=== PATIENT | female | born 1985 | race Caucasian/White ===

== ENCOUNTER 2016-03-30 16:08 | Emergency (ER) | payer SELFPAY ==
--- NOTE | 2016-03-30 17:27 | EDDOCDS ---
Nurse's Notes [facility] Name: Rachelle Khalil Age: 30 yrs Sex: Female : 1985 Arrival Date: 03/30/2016 Time: 16:08 Bed Triage 2 Private MD: NO PRIMARY PHYSICIAN, . Diagnosis: Benign lipomatous neoplasm, unspecified-sternum Presentation: 03/30 16:12 Presenting complaint: Patient states: "I have a lump on my breastbone that causes ead shooting pain in my chest and my abdomen." Pt reports lump has been present for 1 1/2 years. Adult Sepsis Screening: The patient does not have new or worsening altered mentation. Patient's respiratory rate is less than 22. Systolic blood pressure is greater than 100. Patient has a qSOFA score of 0- Negative Sepsis Screen. Suicide/Homicide risk assessment- the patient denies having any suicidal and/or homicidal ideations and does not present with any other emotional, behavioral or mental health complaints. Status: Patient is not a service developer or dependent. Transition of care: patient was not received from another setting of care. 16:12 Acuity: [place] Level 4 ead 16:12 Method Of Arrival: Walkin/Carried/Asstd ead Triage Assessment: 16:14 General: Appears in no apparent distress, comfortable, Behavior is appropriate for age, ead cooperative. Pain: Location: diaphragm, xyphoid area, mid-sternal area, right breast and left breast Pain currently is 7 out of 10 on a pain scale. HIV screening NA for this visit Offered previously. Respiratory: Airway is patent Respiratory effort is even, unlabored, Denies shortness of breath. Derm: Skin is pink, warm & dry. pt reports lump on breast bone. 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 none - PMHx: none; - PSHx: none; - Social history: Smoking status: Patient states former smoker of tobacco. No barriers to communication noted, The patient speaks fluent Georgian, Speaks appropriately for age. - Family history: Not pertinent. - : The pt / caregiver states he / she is not on anticoagulants. Home medication list is obtained from the patient. - Exposure Risk Screening:: None identified. Screenin:26 Screening information is obtained from the patient. Fall risk: No risks identified. mlb1 Assistance ADL's: requires no assistance with activities of daily living. Abuse/DV Screen: The patient / caregiver reports he/she is: not in a situation that causes fear, pain or injury. Nutritional screening: No deficits noted. Advance Directives: Currently, there is no health care proxy. home support is adequate. Assessment: 17:25 General: Appears in no apparent distress, comfortable, Behavior is appropriate for age, mlb1 cooperative. Pain: Location: mid-sternal area lump Pain currently is 7 out of 10 on a pain scale. Respiratory: No deficits noted. Vital Signs: 16:10 BP 136 / 75; Pulse 76; Resp 18 S; Temp 98.0(O); Pulse Ox 98% on R/A; Weight 85.73 kg gr2 (R); Height 5 ft. 2 in. (157.48 cm) (R); Pain 6/10; 16:10 Body Mass Index 34.57 (85.73 kg, 157.48 cm) gr2 Vitals: 16:10 Log In Time: March 30, 2016 at 16:10. gr2 ED Course: 16:09 Patient visited by Ten Lindsey. gr2 16:09 NO PRIMARY PHYSICIAN, . is Private Physician. gr2 16:09 Patient moved to Waiting gr2 16:11 Patient visited by Ten Lindsey. gr2 16:11 Patient moved to Pre RCE gr2 16:13 Triage Initiated ead 16:38 Patient moved to Triage 2 ead 16:47 Patient visited by Bailee Sosa RN. ck1 16:48 Spike Nieto PA is PHCP. mo1 16:48 Nilda Banks MD is Attending Physician. mo1 16:52 Patient visited by Spike Nieto PA. mo1 17:13 [facility] is Referral Physician. mo1 17:25 Patient visited by Spike Broderick RN. mlb1 17:26 No IV's were initiated during this patient's visit. No procedures done that require mlb1 assistance. 17:27 The patient / caregiver is instructed regarding the plan of care and ED course. mlb1 Order Results: There are currently no results for this order. Outcome: 17:13 Discharge ordered by Provider. mo1 17:26 Discharge Assessment: Patient awake, alert and oriented x 3. No cognitive and/or mlb1 functional deficits noted. Patient verbalized understanding of disposition instructions. patient administered narcotics - no. The following High Risk Discharge criteria are identified: None. Discharged to home ambulatory. Condition: good. Discharge instructions given to patient, Instructed on discharge instructions, follow up and referral plans. Demonstrated understanding of instructions, Pt was receptive of discharge instructions/ teaching. No special radiology studies were completed. Property sent home with patient. 17:27 Patient left the ED. mlb1 Signatures: Spike Broderick RN RN mlb1 Bailee SosaRN RN ck1 Ten Lindsey gr2 Spike Nieto PA PA mo1 Lluvia Alexis,RN RN candi MTDD
--- NOTE | 2016-03-30 17:27 | EDDOCDS ---
Physician Documentation [facility] Name: Rachelle Khalil Age: 30 yrs Sex: Female : 1985 Arrival Date: 03/30/2016 Time: 16:08 Bed Triage 2 Private MD: NO PRIMARY PHYSICIAN, . Disposition: 03/30/16 17:13 Discharged to Home/Self Care. Impression: Benign lipomatous neoplasm, unspecified - sternum. - Condition is Stable. - Discharge Instructions: Chest Wall Pain, Lipoma. - Medication Reconciliation, Local Pharmacy Hours form. - Follow up: [facility]; When: Call to arrange an appointment; Reason: Recheck today's complaints, Continuance of care. - Problem is an ongoing problem. - Symptoms are unchanged. Historical: - Allergies: no known allergies; - Home Meds: 1. none - PMHx: none; - PSHx: none; - Social history: Smoking status: Patient states former smoker of tobacco. No barriers to communication noted, The patient speaks fluent French, Speaks appropriately for age. - Family history: Not pertinent. - : The pt / caregiver states he / she is not on anticoagulants. Home medication list is obtained from the patient. - Exposure Risk Screening:: None identified. 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 2 in. (157.48 cm) (R); Pain 6/10; 16:10 Body Mass Index 34.57 (85.73 kg, 157.48 cm) gr2 Signatures: Spike Broderick RN RN mlb1 Spike Nieto PA PA Lluvia Wolf,RN RN candi MTDD
--- NOTE | 2016-04-01 18:27 | EDDOCDS ---
Nurse's Notes [facility] Name: Rachelle Khalil Age: 30 yrs Sex: Female : 1985 Arrival Date: 03/30/2016 Time: 16:08 Bed Triage 2 Private MD: NO PRIMARY PHYSICIAN, . Diagnosis: Benign lipomatous neoplasm, unspecified-sternum Presentation: 03/30 16:12 Presenting complaint: Patient states: "I have a lump on my breastbone that causes ead shooting pain in my chest and my abdomen." Pt reports lump has been present for 1 1/2 years. Adult Sepsis Screening: The patient does not have new or worsening altered mentation. Patient's respiratory rate is less than 22. Systolic blood pressure is greater than 100. Patient has a qSOFA score of 0- Negative Sepsis Screen. Suicide/Homicide risk assessment- the patient denies having any suicidal and/or homicidal ideations and does not present with any other emotional, behavioral or mental health complaints. Status: Patient is not a auto self service station attendant or dependent. Transition of care: patient was not received from another setting of care. 16:12 Acuity: [place] Level 4 ead 16:12 Method Of Arrival: Walkin/Carried/Asstd ead Triage Assessment: 16:14 General: Appears in no apparent distress, comfortable, Behavior is appropriate for age, ead cooperative. Pain: Location: diaphragm, xyphoid area, mid-sternal area, right breast and left breast Pain currently is 7 out of 10 on a pain scale. HIV screening NA for this visit Offered previously. Respiratory: Airway is patent Respiratory effort is even, unlabored, Denies shortness of breath. Derm: Skin is pink, warm & dry. pt reports lump on breast bone. 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 none - PMHx: none; - PSHx: none; - Social history: Smoking status: Patient states former smoker of tobacco. No barriers to communication noted, The patient speaks fluent Portuguese, Speaks appropriately for age. - Family history: Not pertinent. - : The pt / caregiver states he / she is not on anticoagulants. Home medication list is obtained from the patient. - Exposure Risk Screening:: None identified. Screenin:26 Screening information is obtained from the patient. Fall risk: No risks identified. mlb1 Assistance ADL's: requires no assistance with activities of daily living. Abuse/DV Screen: The patient / caregiver reports he/she is: not in a situation that causes fear, pain or injury. Nutritional screening: No deficits noted. Advance Directives: Currently, there is no health care proxy. home support is adequate. Assessment: 17:25 General: Appears in no apparent distress, comfortable, Behavior is appropriate for age, mlb1 cooperative. Pain: Location: mid-sternal area lump Pain currently is 7 out of 10 on a pain scale. Respiratory: No deficits noted. Vital Signs: 16:10 BP 136 / 75; Pulse 76; Resp 18 S; Temp 98.0(O); Pulse Ox 98% on R/A; Weight 85.73 kg gr2 (R); Height 5 ft. 2 in. (157.48 cm) (R); Pain 6/10; 16:10 Body Mass Index 34.57 (85.73 kg, 157.48 cm) gr2 Vitals: 16:10 Log In Time: March 30, 2016 at 16:10. gr2 ED Course: 16:09 Patient visited by Ten Lindsey. gr2 16:09 NO PRIMARY PHYSICIAN, . is Private Physician. gr2 16:09 Patient moved to Waiting gr2 16:11 Patient visited by Ten Lindsey. gr2 16:11 Patient moved to Pre RCE gr2 16:13 Triage Initiated ead 16:38 Patient moved to Triage 2 ead 16:47 Patient visited by Bailee Sosa RN. ck1 16:48 Spike Nieto PA is PHCP. mo1 16:48 Nilda Banks MD is Attending Physician. mo1 16:52 Patient visited by Spike Nieto PA. mo1 17:13 [facility] is Referral Physician. mo1 17:25 Patient visited by Spike Broderick RN. mlb1 17:26 No IV's were initiated during this patient's visit. No procedures done that require mlb1 assistance. 17:27 The patient / caregiver is instructed regarding the plan of care and ED course. mlb1 17:43 [facility] [place] Payment Agreement was scanned into [employer] and attached to record. lg 03/31 09:41 T-Sheet-- Draft Copy was scanned into [employer] and attached to record. gb Order Results: There are currently no results for this order. Outcome: 03/30 17:13 Discharge ordered by Provider. mo1 17:26 Discharge Assessment: Patient awake, alert and oriented x 3. No cognitive and/or mlb1 functional deficits noted. Patient verbalized understanding of disposition instructions. patient administered narcotics - no. The following High Risk Discharge criteria are identified: None. Discharged to home ambulatory. Condition: good. Discharge instructions given to patient, Instructed on discharge instructions, follow up and referral plans. Demonstrated understanding of instructions, Pt was receptive of discharge instructions/ teaching. No special radiology studies were completed. Property sent home with patient. 17:27 Patient left the ED. mlb1 Signatures: Gwen Davies, Reg Reg gb Yulia Bender, Reg Reg lg Spike Broderick RN RN mlb1 Bailee SosaRN RN ck1 Ten Lindsey gr2 Spike Nieto PA PA mo1 Lluvia Alexis,RN RN candi Chart Complete YONY
--- NOTE | 2016-04-01 18:27 | EDDOCDS ---
Physician Documentation [facility] Name: Rachelle Khalil Age: 30 yrs Sex: Female : 1985 Arrival Date: 03/30/2016 Time: 16:08 Bed Triage 2 Private MD: NO PRIMARY PHYSICIAN, . Disposition: 03/30/16 17:13 Discharged to Home/Self Care. Impression: Benign lipomatous neoplasm, unspecified - sternum. - Condition is Stable. - Discharge Instructions: Chest Wall Pain, Lipoma. - Medication Reconciliation, Local Pharmacy Hours form. - Follow up: [facility]; When: Call to arrange an appointment; Reason: Recheck today's complaints, Continuance of care. - Problem is an ongoing problem. - Symptoms are unchanged. Historical: - Allergies: no known allergies; - Home Meds: 1. none - PMHx: none; - PSHx: none; - Social history: Smoking status: Patient states former smoker of tobacco. No barriers to communication noted, The patient speaks fluent Maltese, Speaks appropriately for age. - Family history: Not pertinent. - : The pt / caregiver states he / she is not on anticoagulants. Home medication list is obtained from the patient. - Exposure Risk Screening:: None identified. 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 2 in. (157.48 cm) (R); Pain 6/10; 16:10 Body Mass Index 34.57 (85.73 kg, 157.48 cm) gr2 MDM: 17:43 [facility] Payment Agreement was scanned into [employer] and attached to record. 17:43 Financial registration complete. 03/31 09:41 T-Sheet-- Draft Copy was scanned into [employer] and attached to record. Signatures: Gwen Davies, Reg Reg gb Yulia Bender, Reg Reg lg Spike Broderick, RN RN mlb1 Spike Nieto PA PA mo1 Lluvia Alexis,RN RN ead The chart was reviewed and I authenticate all verbal orders and agree with the evaluation and treatment provided.Attachments: 03/30 17:43 [facility] [place] Agreement lg 03/31 09:41 T-Sheet-- Draft Copy gb Chart Complete MTDD
--- NOTE | 2016-04-01 18:27 | EDDOCDS ---
Physician Documentation [facility] Name: Rachelle Khalil Age: 30 yrs Sex: Female : 1985 Arrival Date: 03/30/2016 Time: 16:08 Bed Triage 2 Private MD: NO PRIMARY PHYSICIAN, . Disposition: 03/30/16 17:13 Discharged to Home/Self Care. Impression: Benign lipomatous neoplasm, unspecified - sternum. - Condition is Stable. - Discharge Instructions: Chest Wall Pain, Lipoma. - Medication Reconciliation, Local Pharmacy Hours form. - Follow up: [facility]; When: Call to arrange an appointment; Reason: Recheck today's complaints, Continuance of care. - Problem is an ongoing problem. - Symptoms are unchanged. Historical: - Allergies: no known allergies; - Home Meds: 1. none - PMHx: none; - PSHx: none; - Social history: Smoking status: Patient states former smoker of tobacco. No barriers to communication noted, The patient speaks fluent Palauan, Speaks appropriately for age. - Family history: Not pertinent. - : The pt / caregiver states he / she is not on anticoagulants. Home medication list is obtained from the patient. - Exposure Risk Screening:: None identified. 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 2 in. (157.48 cm) (R); Pain 6/10; 16:10 Body Mass Index 34.57 (85.73 kg, 157.48 cm) gr2 MDM: 17:43 [facility] Payment Agreement was scanned into [employer] and attached to record. 17:43 Financial registration complete. 03/31 09:41 T-Sheet-- Draft Copy was scanned into [employer] and attached to record. Signatures: Gwen Davies, Reg Reg gb Yulia Bender, Reg Reg lg Spike Broderick, RN RN mlb1 Spike Nieto PA PA mo1 Lluvia Alexis,RN RN ead The chart was reviewed and I authenticate all verbal orders and agree with the evaluation and treatment provided.Attachments: 03/30 17:43 [facility] [place] Payment Agreement lg 03/31 09:41 T-Sheet-- Draft Copy gb Chart Complete MTDD
== END 2016-03-30 17:27 | disposition home or self-care (01) ==
LOC: M ED 16:08
DX: D17.1 Benign lipomatous neoplasm of skin and subcutaneous tissue of trunk (principal); Z87.891 Personal history of nicotine dependence

== ENCOUNTER 2016-06-15 17:44 | Emergency (ER) | payer SELFPAY ==
[~2016-06-15] VITALS: Ht 157.5 cm; Wt 80.3 kg
[2016-06-15] MEDS ORDERED: NS 1,000 ML IV ONE (18:30)
[2016-06-15] MEDS ORDERED: ONDANSETRON 4MG/2ML VIAL (J2405) IV ONE (18:30)
[2016-06-15] MEDS ORDERED: PANTOPRAZOLE 40MG INJ (PROTONIX) (C9113) IV ONE (18:30)
[2016-06-15] MEDS ORDERED: GI COCKTAIL 50ML BTL(HYOSCYAMINE/MAALOX/LIDOCAINE VISCOUS)(1:3:1) PO ONE (18:30)
[2016-06-15 18:54] LABS: BASO % 0.2 % (0.0-1.0); EOS # 0.1 K/mm3 (0.0-0.50); EOS % 0.5 % (0.0-3.0); LARGE UNSTAINED CELL # 0.2 K/mm3 (0.0-0.4); LARGE UNSTAINED CELL % 1.2 % (0.0-4.0); LYMPH % 23.8 % (24.0-44.0); MEAN CORPUSCULAR HEMOGLOBIN 30.4 pg (27.0-33.0); MEAN CORPUSCULAR HGB CONC 34.1 g/dl (32.0-36.5); MEAN CORPUSCULAR VOLUME 89.2 fl (80.0-96.0); MONO # 0.5 K/mm3 (0.0-0.8); MONO % 4.3 % (0.0-5.0); NEUTROPHILS # 8.7 K/mm3 (1.8-7.7); NEUTROPHILS % 69.9 % (36.0-66.0); PLATELET COUNT, AUTOMATED 389 k/mm3 (150-450); RED CELL DISTRIBUTION WIDTH 12.8 % (11.5-14.5); WHITE BLOOD COUNT 12.5 K/mm3 (4.0-10.0)
--- NOTE | 2016-06-15 19:10 | REPUSA ---
CLINICAL HISTORY: Abdominal pain. TECHNIQUE: Realtime sonographic images were obtained in multiple projections. COMMENTS: The liver is of normal size, parenchyma demonstrates normal echogenicity. No discrete hepatic mass is seen. There is no intra or extrahepatic biliary ductal dilatation. CBD measures 1.5 mm. The gallbladder is physiologically distended without evidence of calculi. The gallbladder wall is not thickened and ther e is no pericholecystic fluid. There is no abdominal ascites. The right kidney measures 10.1 cm, free of hydronephrosis. IMPRESSION: Unremarkable study. Thank you for your kind referral of this patient.
[2016-06-15 19:14] LABS: CONTROL LINE HCG INT CTR LINE PRESENT
[2016-06-15 19:18] LABS: ALBUMIN 4.1 GM/DL (3.2-5.2); ALBUMIN/GLOBULIN RATIO 1.05 (1.00-1.93); ALKALINE PHOSPHATASE 48 U/L (45-117); ALT/SGPT 23 U/L (12-78); AMYLASE 34 U/L (25-115); ANION GAP 8 MEQ/L (8-16); AST/SGOT 19 U/L (15-37); BILIRUBIN,DIRECT < 0.1 MG/DL (0.0-0.2); BILIRUBIN,TOTAL 0.5 MG/DL (0.2-1.0); BLOOD UREA NITROGEN 15 MG/DL (7-18); CALCIUM LEVEL 9.1 MG/DL (8.5-10.1); CARBON DIOXIDE LEVEL 24 MEQ/L (21-32); CHLORIDE LEVEL 105 MEQ/L (98-107); CREATININE FOR GFR 0.92 MG/DL (0.55-1.02); GLOMERULAR FILTRATION RATE > 60.0 (>60); GLUCOSE, FASTING 86 MG/DL (70-105); POTASSIUM SERUM 3.7 MEQ/L (3.5-5.1); SODIUM LEVEL 137 MEQ/L (136-145)
[2016-06-15] MEDS ORDERED: PROT1TAB2 PO (20:35)
[2016-06-15 21:18] VITALS: BP 125/68
--- NOTE | 2016-06-16 08:24 | REP ---
Chest x-ray: Two views. History: Upper abdominal pain . Comparison study: July 26, 2012 . Findings: The lungs are well inflated and free of infiltrate. The pleural angles are sharp. The heart size is normal. Pulmonary vasculature is not increased. No significant bony abnormality is seen. Impression: Negative chest x-ray. Signed by David Montgomery MD 06/16/2016 08:15 A
== END 2016-06-15 21:23 | disposition home or self-care (01) ==
LOC: M ED 18:59
DX: K21.9 Gastro-esophageal reflux disease without esophagitis (principal)
CPT/HCPCS: 36415; 71020; 76705; 80048; 80076; 82150; 83690; 84703; 85025; 96374; 96375; 99283; C9113; J2405

== ENCOUNTER 2016-08-29 16:27 | Emergency (ER) | payer SELFPAY ==
[~2016-08-29] VITALS: Ht 157.5 cm; Wt 81.3 kg
[~2016-08-29 16:27] MED LIST: PROT1TAB2 PO
[2016-08-29 16:28] VITALS: BP 127/74
[2016-08-29] MEDS ORDERED: IBUP-1022 PO (17:00)
[2016-08-29] MEDS ORDERED: AMOX500C PO (17:00)
== END 2016-08-29 17:12 | disposition home or self-care (01) ==
LOC: M ED 17:00
DX: K01.1 Impacted teeth (principal)

== ENCOUNTER 2016-12-20 17:33 | Emergency (ER) | payer SELFPAY ==
[~2016-12-20] VITALS: Ht 157.5 cm; Wt 75.7 kg
[~2016-12-20 17:33] MED LIST changes: +AMOX500C PO; +IBUP-1022 PO
[2016-12-20 20:21] LABS: CONTROL LINE UCG INT CTR LINE PRESENT
[2016-12-20 20:22] VITALS: BP 157/88
[2016-12-20] MEDS ORDERED: FLAG500T PO (21:21)
== END 2016-12-20 20:24 | disposition home or self-care (01) ==
LOC: M ED 17:33
DX: Z11.3 Encounter for screening for infections with a predominantly sexual mode of transmission (principal); N76.0 Acute vaginitis

== ENCOUNTER 2017-05-14 18:53 | Emergency (ER) | payer SELFPAY | END 2017-05-14 19:37 | disposition left against medical advice (07) | LOC: M ED 18:53 | DX: R05 Cough (principal); Z53.21 Procedure and treatment not carried out due to patient leaving prior to being seen by health care provider ==

== ENCOUNTER → 2019-09-02 | Outpatient (REF) | payer MEDICAID, OTHER, SELFPAY ==
[~2019-09-02] MED LIST changes: +FLAG500T PO
[2019-09-02 15:37] LABS: HEMATOCRIT 39.3 % (36.0-47.0); HEMOGLOBIN 13.3 g/dl (12.0-15.5); MEAN CORPUSCULAR HEMOGLOBIN 30.5 pg (27.0-33.0); MEAN CORPUSCULAR HGB CONC 33.8 g/dl (32.0-36.5); MEAN CORPUSCULAR VOLUME 90.1 fl (80.0-96.0); PLATELET COUNT, AUTOMATED 327 10^3/uL (150-450); RED BLOOD COUNT 4.36 10^6/uL (4.00-5.40); WHITE BLOOD COUNT 10.1 10^3/uL (4.0-10.0)
[2019-09-02 17:05] LABS: CHLAMYDIA DNA AMPLIFICATION NEGATIVE (NEGATIVE); GC DNA AMPLIFICATION NEGATIVE (NEGATIVE)
[2019-09-03 01:49] LABS: HCG, SERUM QUANTITATIVE 60398 MIU/ML
[2019-09-03 09:22] LABS: HEPATITIS C VIRUS ABY INDEX 0.3 INDEX (<0.8); HIV 1&2 SCREEN CENTAUR NEGATIVE (NEGATIVE)
== END ==
LOC: M PLALAB 12:33
PROVIDERS: ATTEND Specialist
DX: Z34.01 Encounter for supervision of normal first pregnancy, first trimester (principal)

== ENCOUNTER → 2019-09-04 | Outpatient (REF) | payer SELFPAY | LOC: M LABDRAWC 15:46 | PROVIDERS: ATTEND Specialist | DX: N92.6 Irregular menstruation, unspecified (principal) ==

== ENCOUNTER → 2020-08-04 | Outpatient (REF) | payer OTHER ==
[2020-08-04 15:25] LABS: HEMOGLOBIN 12.8 g/dl (12.0-15.5); MEAN CORPUSCULAR HEMOGLOBIN 29.8 pg (27.0-33.0); MEAN CORPUSCULAR HGB CONC 32.8 g/dl (32.0-36.5); MEAN CORPUSCULAR VOLUME 90.9 fl (80.0-96.0); PLATELET COUNT, AUTOMATED 299 10^3/uL (150-450); RED BLOOD COUNT 4.29 10^6/uL (4.00-5.40); WHITE BLOOD COUNT 10.2 10^3/uL (4.0-10.0)
[2020-08-04 16:20] LABS: HIV 1&2 SCREEN CENTAUR NEGATIVE (NEGATIVE)
== END ==
LOC: M PLALAB 12:04
PROVIDERS: ATTEND Specialist
DX: Z36.89 Encounter for other specified antenatal screening (principal)

== ENCOUNTER → 2020-10-29 | Outpatient (CLI) | payer OTHER ==
--- NOTE | 2020-10-29 10:29 | REP ---
INDICATION: ANATOMY. COMPARISON: None. TECHNIQUE: Real-time sonographic evaluation of the gravid uterus performed. FINDINGS: Estimated gestational age is24 weeks 4 days, EDC 02/14/2021. Today's measurements indicate appropriate growth. Presentation: Transverse Placenta is posterior on the right, grade 1, without evidence of placenta previa. heart rate is recorded at 143 beats per minute. Amniotic fluid is subjectively normal. Closed cervical length is measured at 5.3 cm. There is an anterior uterine fibroid measuring 6.9 x 5.1 x 5.6 cm. Biometry chart: BPD: 59 mm, 24 weeks 1 days, 42nd percentile. HC: 227 mm, 24 weeks 5 days, 53rd percentile AC: 189 mm, 23 weeks 5 days, 31st percentile Femur length: 43 mm, 24 weeks 0 days, 36th percentile HC to AC ratio: 1.20, normal range 1.02-1.21. Estimated weight: 642g, 17th percentile. anatomy: Cranium: Grossly normal Lateral Ventricles/Choroid Plexus: No is seen due to position Posterior Fossa/Cerebellum: Not well seen due to position Nose/lips/profile: Not well seen due to position. Four chamber heart: Grossly normal Right ventricular outflow tract: Grossly normal Left ventricular outflow tract: Grossly normal Left-sided stomach: Grossly normal Kidneys: Grossly normal Bladder: Not well seen due to position Cord Insertion: Grossly normal 3 vessel cord: Grossly normal Spine: Not well seen due to position IMPRESSION: Viable single intrauterine gestation as above. Limited visualization of anatomy, recommend follow-up. <Electronically signed by Manuel Rosenberg > 10/29/20 [id number]
== END ==
LOC: M WHC 08:03
PROVIDERS: ATTEND Advanced Practice Midwife
DX: Z36.3 Encounter for antenatal screening for malformations (principal); Z3A.24 24 weeks gestation of pregnancy

== ENCOUNTER → 2020-12-27 | Outpatient (CLI) | payer OTHER ==
--- NOTE | 2020-12-27 20:19 | REP ---
INDICATION: PREG 31+ WKS F/U ANATOMY COMPARISON: 10/29/2020 TECHNIQUE: Transabdominal obstetrical ultrasound with color Doppler evaluation. FINDINGS: Examination demonstrates a single live intrauterine in cephalic presentation. motion is identified by technologist. Placenta is noted fundal and grade 2 without evidence for placenta previa or abruption. Amniotic fluid volume is normal. Cervix appears closed. Fibroid identified on prior examination along the anterior uterine wall. Selected gestational age: 33 weeks 0 days with JANAE 02/14/2021. Gestational age by current measurements 33 weeks 3 days with JANAE 02/11/2021. FHR equals 126 beats per minute. CALI: 18.1 cm Umbilical artery SD ratio: 3.23 (1.79-3.77) Estimated weight 2124 grams (45thpercentile). Anatomical assessment demonstrates normal structures including nose/lips, bladder, and spine.. Limited evaluation of the intracranial contents due to age and positioning. IMPRESSION: Single live advanced gestation demonstrating appropriate interval growth. Anatomical limitations as noted above. Current examination demonstrates normal appearance of the nose/lips, bladder and spine. <Electronically signed by Eric Singh > 12/27/202014
== END ==
LOC: M RAD 14:02
PROVIDERS: ATTEND Advanced Practice Midwife
DX: O99.212 Obesity complicating pregnancy, second trimester (principal); Z3A.33 33 weeks gestation of pregnancy

== ENCOUNTER → 2021-01-14 | Outpatient (CLI) | payer OTHER ==
[~2021-01-14] MED LIST changes: +ACET-683 PO; +COLA100C5 PO
[2021-01-14 13:31] LABS: HEMATOCRIT 35.9 % (36.0-47.0); HEMOGLOBIN 11.9 g/dl (12.0-15.5); MEAN CORPUSCULAR HEMOGLOBIN 30.4 pg (27.0-33.0); MEAN CORPUSCULAR HGB CONC 33.1 g/dl (32.0-36.5); MEAN CORPUSCULAR VOLUME 91.6 fl (80.0-96.0); PLATELET COUNT, AUTOMATED 342 10^3/uL (150-450); RED BLOOD COUNT 3.92 10^6/uL (4.00-5.40); WHITE BLOOD COUNT 13.3 10^3/uL (4.0-10.0)
== END ==
LOC: M PLALAB 10:21
PROVIDERS: ATTEND Advanced Practice Midwife
DX: O99.212 Obesity complicating pregnancy, second trimester (principal); Z3A.00 Weeks of gestation of pregnancy not specified

== ENCOUNTER 2021-01-16 05:52 | Inpatient (IN) | payer OTHER ==
[2021-01-16] VITALS (32 sets, daily range): BP systolic 108–175; BP diastolic 55–100
[~2021-01-16] VITALS: Ht 157.5 cm; Wt 122.0 kg
[~2021-01-16 05:52] MED LIST changes: -ACET-683 PO; -COLA100C5 PO
[2021-01-16] MEDS ORDERED: PENICILLIN G POTASSIUM IV 5 MU in D5W MINI-BAG PLUS 100 ML IV STA (06:58)
[2021-01-16] MEDS ORDERED: LACTATED RINGER'S 1000 ML IV STA (06:58)
[2021-01-16] MEDS ORDERED: CARBOPROST TROMETHAMINE 250 MCG/ML AMP IM PRN (07:00)
[2021-01-16] MEDS ORDERED: METHYLERGONOVINE MALEATE 0.2 MG/ML VIAL (J2210) IM PRN (07:00)
[2021-01-16] MEDS ORDERED: TRANEXAMIC ACID INJection 1,000 MG in NS 100 ML IV PRN (07:00)
[2021-01-16] MEDS ORDERED: OXYTOCIN DRIP 30 UNITS in IV 1 EA IV PRN (07:00)
[2021-01-16] MEDS ORDERED: BETAMETHASONE SOLUSPAN 6MG/ML 5ML VIAL (J0702 PER 3MG) IM SCH (07:00)
[2021-01-16] MEDS ORDERED: LIDOCAINE 1% MDV 20ML VIAL INFIL PRN (07:00)
[2021-01-16] MEDS: ONDANSETRON 4MG/2ML VIAL IV PRN ×3 (07:33→17:48)
[2021-01-16 07:34] LABS: HEMATOCRIT 35.9 % (36.0-47.0); HEMOGLOBIN 12.2 g/dl (12.0-15.5); MEAN CORPUSCULAR HEMOGLOBIN 30.7 pg (27.0-33.0); MEAN CORPUSCULAR VOLUME 90.4 fl (80.0-96.0); PLATELET COUNT, AUTOMATED 336 10^3/uL (150-450); RED BLOOD COUNT 3.97 10^6/uL (4.00-5.40); WHITE BLOOD COUNT 15.4 10^3/uL (4.0-10.0)
[2021-01-16] MEDS: LR 1,000 ML IV SCH ×2 (07:44→12:02)
--- NOTE | 2021-01-16 07:55 | HPEPDOC ---
Obstetrical History & Physical General Date of Admission Jan 16, 2021 at 06:55 History of Present Illness 35-year-old G2, P0010 at 35+6 weeks gestation, dated by first trimester ultrasound. Presents with loss of fluid,clear at 0330 and continuous leakage. Denies frequent, painful uterine contractions. Intermittently painful. Denies any vaginal bleeding. Reports regular movement. ROS: no HUNG, cp, sob, fever/chills. Patient complains of n/v, which she has had daily throughout the . 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 G2, current Sochx: +marijuana use throughout (to treat N/V) FamHx: none labs: Blood type AB+ , antibody screen negative, HepBsAg neg, HIV neg, rubella immune, Hep C antibody negative, RPR nonreactive, CT/GC neg, urine culture negative, 1 hour glucose challenge test 105, GBS unknown imaging: no anomalies or placental abnormalities Past Medical History Allergies Coded Allergies: No Known Allergies (Verified , 09/15/02) Physical Examination Physical Examination GENERAL: Alert and oriented times three. ABDOMEN: Gravid and non-tender to touch. FETUS: Is vertex (VTX) by sterile vaginal examination (SVE), fetus is vertex (VTX) by Luisito and confirmed by US HEART RATE: Regular rate and rhythm. LUNGS: Clear to auscultation (CTA). EXTREMITIES: No edema. SSE: 1cm dilated, +pooling/+nitrazine/+ferning. SVE: 1cm/75%/-3 US,castle: Cephalic. EFM: Cat I Prentice: contractions are infrequent. Laboratory Data 24H LABS Laboratory Tests 2 01/16/21 07:00: Serology Scanned Report Hepatitis B Testing Assessment/Plan Assessment 35yo at 35+6 weeks. PPROM. No IAI. Reassuring maternal and status. Plan Admit and orient. 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 Group B Streptococcus (GBS) prophylaxis ordered; GBS screen ordered. Betamethasone 12mg IM q24h x 2 doses Labs and intravenous (IV) per unit protocol. Counseled on Pitocin augmentation/active management of labor. MASHA VASQUES DO Jan 16, 2021 07:55
[2021-01-16] MEDS ORDERED: PROMETHAZINE INJ 25 MG/ML VIAL (J2550) IV ONE (10:45)
[2021-01-16] MEDS ORDERED: OXYTOCIN DRIP 30 UNITS in IV 1 EA IV SCH ×2 (10:45→19:20)
[2021-01-16] MEDS ORDERED: BUTORPHANOL 2 MG/ML INJ (J0595) IV ONE (10:45)
[2021-01-16 10:49] LABS: AMPHETAMINES URINE REFLEX NEGATIVE (NEGATIVE); BARBITURATES URINE REFLEX NEGATIVE (NEGATIVE); BENZODIAZEPINES URINE REFLEX NEGATIVE (NEGATIVE); COCAINE METABOLITE URINE REFLE NEGATIVE (NEGATIVE); METHADONE URINE REFLEX NEGATIVE (NEGATIVE); OPIATES URINE REFLEX NEGATIVE (NEGATIVE); PHENCYCLIDINE URINE REFLEX NEGATIVE (NEGATIVE)
[2021-01-16 10:58] LABS: CANNABINOIDS URINE REFLEX PENDING CONFIRMATION (NEGATIVE)
[2021-01-16] MEDS: PENICILLIN G POTASSIUM IV 2.5 MU in IV 1 EA IV SCH ×2 (12:00→16:08)
[2021-01-16] MEDS ORDERED: FENTANYL 2MCG/ML ROPIVACAINE 0.2% IN 0.9% NACL 100ML IVBAG As Ordered ONE (15:05)
[2021-01-16] MEDS ORDERED: EPIDURAL/PCA KEYS XX PRN (15:39)
[2021-01-16] MEDS ORDERED: ePHEDrine SULFATE 25 MG/5 ML(5MG/ML) SYRINGE IV PRN (15:39)
[2021-01-16] MEDS ORDERED: EPIDURAL COMMENT XX SCH (15:39)
[2021-01-16] MEDS ORDERED: ONDANSETRON 4MG/2ML VIAL IV PRN ×2 (15:39→19:20)
[2021-01-16] MEDS ORDERED: FENTANYL/ROPIVACAINE/NACL BAG 100 ML EPIDURAL SCH (15:39)
[2021-01-16] MEDS ORDERED: diphenhydrAMINE 50MG/ML VIAL (J1200) IV PRN (15:39)
[2021-01-16] MEDS ORDERED: LACTATED RINGER'S 1000 ML IV PRN (15:39)
[2021-01-16] MEDS ORDERED: REFRIGERATOR IV KEYS XX PRN (15:39)
[2021-01-16] MEDS ORDERED: NALOXONE INJ 0.4MG/1ML VIAL (J2310 PER 1MG) IV PRN (15:39)
[2021-01-16] MEDS ORDERED: CALCIUM CARBONATE 500 MG CHEW U/D PO PRN (16:25)
--- NOTE | 2021-01-16 16:32 | IPNPDOC ---
Obstetrical Progress Note Date of Service Jan 16, 2021 Subjective Comfortable with epidural. Objective Vital Signs Date Time Temp Pulse Resp B/P (MAP) Pulse Ox O2 Delivery O2 Flow Rate FiO2 01/16/21 12:00 77 17 108/57 (74) 01/16/21 11:11 Room Air 01/16/21 10:57 98.2 Assessment Heart Rate Tracing: Category I Tocometer Contractions: Yes Frequency: every 3-7 min. (Pit at 6mU/min) Sterile Vaginal Examination Dilation: 4 cm Effacement (%): 90% Station: -2 Cervical Consistency: Soft Cervical Position: Anterior Postion/Presentation: Cephalic presentation Assessment and Plan Status: Reassuring Group B Streptococcus: Unknown Additional Comments Continue with Pitocin FSE placed (difficulty with EFM 2/2 body habitus) MASHA VASQUES DO Jan 16, 2021 16:31
[2021-01-16] MEDS ORDERED: ACETAMINOPHEN TAB 650MG DOSE (2X325MG) PO PRN (19:20)
[2021-01-16] MEDS ORDERED: LR 1,000 ML IV SCH (19:20)
[2021-01-16] MEDS ORDERED: IBUPROFEN 600MG TAB PO PRN (19:20)
[2021-01-16] MEDS ORDERED: DIBUCAINE 1% OINTMENT 30GM TOP PRN (19:20)
[2021-01-16] MEDS ORDERED: DOCUSATE SODIUM 100MG CAPSULE PO PRN (19:20)
[2021-01-16] MEDS ORDERED: RHOGAM 300 MCG (1500 IU) INJ (J2790) IM SCH (19:20)
[2021-01-16] MEDS ORDERED: MEASLES,MUMPS,RUBELLA VACCINE INJ (MMR-II) (90707) SC SCH (19:20)
[2021-01-16] MEDS ORDERED: FAMOTIDINE 20 MG TAB As Ordered ONE ×2 (19:24→19:26)
--- NOTE | 2021-01-16 19:27 | DNPDOC ---
[facility] Delivery Note Delivery Note DATE OF DELIVERY: 01/16/2021 TIME OF DELIVERY: 1855 Spontaneous vaginal delivery. 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 FINDINGS: 5 pound 4 ounce (2380 g) female , Score 9 and 9. DELIVERY SUMMARY: The active phase and second stage of labor progressed in normal fashion. She received Pitocin augmentation throughout her labor course. The head delivered in the BOY position, and restituted LOT. No nuchal cord was noted. The anterior shoulder delivered with gentle downward guidance and the remainder of the body delivered with ease. The baby was placed on the patient's chest. Delayed cord clamping occurred for approximately 1 minute. The cord was then doubly clamped and cut. IV Pitocin was bolused to actively manage the third stage of labor. The placenta delivered intact without any difficulty within 15 minutes of delivery. The uterine fundus was noted to be firm and 2 cm below the umbilicus. The cervix, vagina, vulva and perineum were inspected. A first-degree laceration was noted and immediately repaired with 3-0 Vicryl in typical fashion. Excellent hemostasis was noted. Sponge, needle and instrument counts were correct per protocol. DO ERMELINDA Perkins JONATHAN R. DO Jan 16, 2021 19:27
[2021-01-16] MEDS ORDERED: FAMOTIDINE 20 MG TAB PO SCH (21:00)
[2021-01-17] MEDS: IBUPROFEN 800 MG TAB PO PRN ×2 (04:42→15:53)
[2021-01-17 06:00] VITALS: BP 134/77
[2021-01-17] MEDS: PRENATAL VITAMINS CHEWABLE TABLET PO SCH (08:24)
[2021-01-17] MEDS: ACETAMINOPHEN 500 MG TAB PO PRN ×2 (10:24→22:26)
[2021-01-17] MEDS: ONDANSETRON 4 MG ORAL DISINTEGRATING TAB PO PRN (12:21)
[2021-01-17 18:00] VITALS: BP 146/77
[2021-01-18] MEDS ORDERED: CALCIUM CARBONATE 500 MG CHEW U/D PO PRN
[2021-01-18 06:00] VITALS: BP 126/62
[2021-01-18] MEDS: ONDANSETRON 4 MG ORAL DISINTEGRATING TAB PO PRN (06:09)
[2021-01-18] MEDS: IBUPROFEN 800 MG TAB PO PRN (06:10)
[2021-01-18] MEDS: PRENATAL VITAMINS CHEWABLE TABLET PO SCH (08:45)
[2021-01-18] MEDS ORDERED: COLA100C5 PO (10:33)
[2021-01-18] MEDS ORDERED: ACET-683 PO (10:33)
[2021-01-18] MEDS ORDERED: IBUP-1022 PO (10:33)
== END 2021-01-18 11:35 | disposition home or self-care (01) | DRG 560 ==
LOC: M LDO 05:52 → M LDI 06:55 → EEVIPCON 06:55 → M OBS 20:47
PROVIDERS: ADMIT Obstetrics & Gynecology; ATTEND Obstetrics & Gynecology
PROC: 10E0XZZ Delivery of Products of Conception, External Approach (ICD-10-PCS; principal; 2021-01-16)
PROC: 0HQ9XZZ Repair Perineum Skin, External Approach (ICD-10-PCS; 2021-01-16)
DX: O42.013 Preterm premature rupture of membranes, onset of labor within 24 hours of rupture, third trimester (principal); O70.0 First degree perineal laceration during delivery; Z3A.35 35 weeks gestation of pregnancy; Z37.0 Single live birth

== ENCOUNTER → 2022-01-06 | Outpatient (CLI) | payer OTHER ==
[~2022-01-06] MED LIST changes: +ACET-683 PO; +COLA100C5 PO
[2022-01-06 18:32] LABS: BASO % 0.2 % (0.0-1.0); EOS # 0.1 10^3/uL (0.0-0.5); EOS % 0.7 % (0.0-3.0); HEMATOCRIT 41.4 % (36.0-47.0); HEMOGLOBIN 13.7 g/dl (12.0-15.5); LYMPH # 2.6 10^3/uL (1.5-5.0); LYMPH % 21.4 % (24.0-44.0); MEAN CORPUSCULAR HEMOGLOBIN 29.8 pg (27.0-33.0); MEAN CORPUSCULAR HGB CONC 33.1 g/dl (32.0-36.5); MEAN CORPUSCULAR VOLUME 90.2 fl (80.0-96.0); MONO # 0.7 10^3/uL (0.0-0.8); NEUTROPHILS # 8.7 10^3/uL (1.5-8.5); NEUTROPHILS % 71.3 % (36.0-66.0); PLATELET COUNT, AUTOMATED 322 10^3/uL (150-450); RED BLOOD COUNT 4.59 10^6/uL (4.00-5.40); WHITE BLOOD COUNT 12.2 10^3/uL (4.0-10.0)
[2022-01-06 19:28] LABS: HEPATITIS C VIRUS ABY INDEX < 0.0 INDEX (<0.8); HIV 1&2 SCREEN CENTAUR NEGATIVE (NEGATIVE)
[2022-01-06 20:28] LABS: GC DNA AMPLIFICATION NEGATIVE (NEGATIVE)
== END ==
LOC: M PLALAB 13:56
PROVIDERS: ATTEND Specialist
DX: Z34.81 Encounter for supervision of other normal pregnancy, first trimester (principal); Z3A.00 Weeks of gestation of pregnancy not specified

== ENCOUNTER → 2022-02-16 | Outpatient (CLI) | payer OTHER | LOC: M WHC 12:12 | PROVIDERS: ATTEND Obstetrics & Gynecology | DX: Z34.92 Encounter for supervision of normal pregnancy, unspecified, second trimester (principal); Z3A.19 19 weeks gestation of pregnancy ==

== ENCOUNTER → 2022-04-28 | Outpatient (CLI) | payer OTHER | LOC: M WHC 12:24 | PROVIDERS: ATTEND Specialist | DX: Z34.82 Encounter for supervision of other normal pregnancy, second trimester (principal); Z3A.30 30 weeks gestation of pregnancy ==

== ENCOUNTER → 2022-06-07 | Outpatient (REF) | payer OTHER ==
[~2022-06-07] MED LIST changes: +PREN1TAB11 PO; +TUMS500C PO
== END ==
LOC: M SFHCWAGY 17:15
PROVIDERS: ATTEND Obstetrics & Gynecology
DX: Z34.93 Encounter for supervision of normal pregnancy, unspecified, third trimester (principal)

== ENCOUNTER 2022-06-08 05:18 | Inpatient (IN) | payer OTHER ==
[2022-06-08] VITALS (30 sets, daily range): BP systolic 114–177; BP diastolic 62–103
[~2022-06-08] VITALS: Ht 157.5 cm; Wt 110.3 kg
[~2022-06-08 05:18] MED LIST changes: -PREN1TAB11 PO; -TUMS500C PO
[2022-06-08] MEDS ORDERED: PREN1TAB11 PO (05:44)
[2022-06-08] MEDS ORDERED: TUMS500C PO (05:44)
[2022-06-08] MEDS ORDERED: HOME MED LIST COMPLETE! XX SCH (05:45)
[2022-06-08] MEDS ORDERED: LACTATED RINGER'S 1000 ML IV STA (06:18)
[2022-06-08] MEDS ORDERED: PENICILLIN G POTASSIUM 5 MU IV 5 MU in D5W MINI-BAG PLUS 100 ML IV STA (06:18)
[2022-06-08] MEDS ORDERED: CARBOPROST TROMETHAMINE 250 MCG/ML AMP IM PRN (06:20)
[2022-06-08] MEDS ORDERED: OXYTOCIN INJ 10UNITS/ML 1ML VIAL IM PRN (06:20)
[2022-06-08] MEDS ORDERED: LIDOCAINE 1% MDV 20ML VIAL INFIL PRN (06:20)
[2022-06-08] MEDS ORDERED: OXYTOCIN DRIP 30 UNITS in IV 1 EA IV PRN ×4 (06:20)
[2022-06-08] MEDS ORDERED: OXYTOCIN DRIP 30 UNITS in IV 1 EA IV SCH ×2 (06:20→20:10)
[2022-06-08] MEDS ORDERED: TRANEXAMIC ACID INJection 1,000 MG in NS 100 ML IV PRN (06:20)
[2022-06-08] MEDS ORDERED: ONDANSETRON 4MG 2ML VIAL IV ONE (06:20)
[2022-06-08 06:27] LABS: HEMATOCRIT 39.9 % (36.0-47.0); HEMOGLOBIN 13.1 g/dl (12.0-15.5); MEAN CORPUSCULAR HEMOGLOBIN 30.4 pg (27.0-33.0); MEAN CORPUSCULAR HGB CONC 32.8 g/dl (32.0-36.5); MEAN CORPUSCULAR VOLUME 92.6 fl (80.0-96.0); PLATELET COUNT, AUTOMATED 324 10^3/uL (150-450); RED BLOOD COUNT 4.31 10^6/uL (4.00-5.40); WHITE BLOOD COUNT 13.3 10^3/uL (4.0-10.0)
[2022-06-08] MEDS ORDERED: BETAMETHASONE SOLUSPAN 6MG/ML 5ML VIAL IM ONE (07:00)
[2022-06-08 07:16] LABS: URIC ACID 6.1 MG/DL (3.1-7.8)
[2022-06-08 07:18] LABS: LDH LACTATE DEHYDROGENASE 111 U/L (120-246)
[2022-06-08 07:19] LABS: ALT/SGPT 17 U/L (7.0-40); AST/SGOT 19 U/L (<34); BILIRUBIN,TOTAL 0.3 MG/DL (0.3-1.2); GLOMERULAR FILTRATION RATE > 60.0 (>60)
[2022-06-08] MEDS ORDERED: PROMETHAZINE 25MG/ML 1ML VIAL IV PRN (07:55)
[2022-06-08] MEDS ORDERED: BUTORPHANOL 2 MG/ML 1ML VIAL IV ONE (07:55)
[2022-06-08] MEDS: LR 1,000 ML IV SCH ×2 (08:01→14:29)
[2022-06-08] MEDS: PEN G POT 3,000,000 UNIT/50 ML 3,000,000 UNIT in IV 1 EA IV SCH ×2 (10:32→14:29)
[2022-06-08] MEDS ORDERED: CALCIUM CARBONATE 500 MG CHEW U/D PO PRN (11:00)
[2022-06-08] MEDS ORDERED: METOCLOPRAMIDE INJ 10MG/2ML VIAL IV PRN (11:45)
[2022-06-08] MEDS ORDERED: LR 500 ML IV PRN (12:05)
[2022-06-08] MEDS ORDERED: EPIDURAL/PCA KEYS XX PRN (12:05)
[2022-06-08] MEDS ORDERED: ePHEDrine SULFATE 25 MG/5 ML(5MG/ML) SYRINGE IVP PRN (12:05)
[2022-06-08] MEDS ORDERED: diphenhydrAMINE 50MG/ML VIAL IV PRN (12:05)
[2022-06-08] MEDS ORDERED: ONDANSETRON 4MG 2ML VIAL IV PRN (12:05)
[2022-06-08] MEDS ORDERED: NALOXONE INJ 0.4MG/1ML VIAL IV PRN (12:05)
[2022-06-08] MEDS: FENTANYL/ROPIVACAINE/NACL BAG 100 ML EPIDURAL SCH ×2 (12:26→19:35)
[2022-06-08] MEDS: AMPICILLIN SOD/SULBACTAM SOD 3 GM in D5W MINI-BAG PLUS 100 ML IV SCH ×3 (16:55→23:57)
[2022-06-08] MEDS: ACETAMINOPHEN 500 MG TAB PO PRN (16:55)
[2022-06-08] MEDS ORDERED: ACETAMINOPHEN 500 MG TAB PO PRN (20:10)
[2022-06-08] MEDS ORDERED: IBUPROFEN 600MG TAB PO PRN (20:10)
[2022-06-08] MEDS ORDERED: DIBUCAINE 1% OINTMENT 30GM TOP PRN (20:10)
[2022-06-08] MEDS ORDERED: ANUSOL HC CREAM 30GM TOP PRN (20:10)
[2022-06-08] MEDS ORDERED: ACETAMINOPHEN TAB 650MG DOSE (2X325MG) PO PRN (20:10)
[2022-06-08] MEDS ORDERED: MOM 30ML SUSPENSION UDC PO PRN (20:10)
[2022-06-08] MEDS ORDERED: METHYLERGONOVINE MALEATE 0.2 MG TAB PO PRN (20:10)
[2022-06-08] MEDS ORDERED: DOCUSATE SODIUM 100MG CAPSULE PO PRN (20:10)
[2022-06-08] MEDS ORDERED: RHOGAM 300MCG (1500IU) INJ IM SCH (20:10)
[2022-06-08 20:17] LABS: CORD GAS ABE A -0.3; CORD GAS HCO3 A 25.8 MEQ/L; CORD GAS O2 SAT A 56.6 %; CORD GAS PCO2 A 46.9 mmHg; CORD GAS PH A 7.358 UNITS; CORD GAS PO2 A 23.3 mmHg; CORD GAS SBC A 23.1 MEQ/L; CORD GAS TCO2 A 27.2 MEQ/L
[2022-06-08 20:19] LABS: CORD GAS ABE V -0.3; CORD GAS HCO3 V 24.9 MEQ/L; CORD GAS O2 SAT V 53.3 %; CORD GAS PCO2 V 42.5 mmHg; CORD GAS PH V 7.385 UNITS; CORD GAS PO2 V 21.5 mmHg; CORD GAS SBC V 22.9 MEQ/L; CORD GAS TCO2 V 26.2 MEQ/L
[2022-06-09] MEDS: ACETAMINOPHEN 500 MG TAB PO PRN ×2 (03:17→16:05)
[2022-06-09 06:00] VITALS: BP 122/71
[2022-06-09] MEDS: IBUPROFEN 800 MG TAB PO PRN ×2 (09:00→21:12)
[2022-06-09] MEDS: PRENATAL VITAMINS CHEWABLE TABLET PO SCH (09:00)
[2022-06-09 18:00] VITALS: BP 135/72
[2022-06-09 22:00] VITALS: BP 121/55
[2022-06-10 02:30] VITALS: BP 121/55
[2022-06-10 06:00] VITALS: BP 125/61
[2022-06-10] MEDS: ACETAMINOPHEN 500 MG TAB PO PRN (06:11)
[2022-06-10] MEDS: PRENATAL VITAMINS CHEWABLE TABLET PO SCH (08:38)
[2022-06-10] MEDS: IBUPROFEN 800 MG TAB PO PRN (08:44)
[2022-06-10] MEDS ORDERED: MEASLES,MUMPS,RUBELLA VACCINE INJ (MMR-II) SC.IMMUN ONE (09:00)
[2022-06-10 10:00] VITALS: BP 132/66
[2022-06-10] MEDS ORDERED: IBUP80TA PO (11:06)
[2022-06-10] MEDS ORDERED: REGL5TAB2 PO (11:06)
== END 2022-06-10 11:48 | disposition home or self-care (01) | DRG 560 ==
LOC: M LDO 05:18 → M LDI 06:17 → M OBS 22:14
PROVIDERS: ADMIT Advanced Practice Midwife; ATTEND Obstetrics & Gynecology
PROC: 10E0XZZ Delivery of Products of Conception, External Approach (ICD-10-PCS; principal; 2022-06-08)
DX: O42.013 Preterm premature rupture of membranes, onset of labor within 24 hours of rupture, third trimester (principal); O41.1230 Chorioamnionitis, third trimester, not applicable or unspecified; Z3A.35 35 weeks gestation of pregnancy; Z37.0 Single live birth

== ENCOUNTER 2022-11-30 07:08 | Day surgery (SDC) | payer OTHER ==
[~2022-11-30] VITALS: Ht 157.5 cm; Wt 93.9 kg
[~2022-11-30 07:08] MED LIST changes: +AMPH1CAP16; +IBUP80TA PO; +PREN1TAB11 PO; +REGL5TAB2 PO; +TRAM50TA2; +TUMS500C PO
[2022-11-30] MEDS ORDERED: LR 1,000 ML IV SCH ×2 (07:30→10:15)
[2022-11-30 07:53] LABS: MEAN CORPUSCULAR HEMOGLOBIN 29.7 pg (27.0-33.0); MEAN CORPUSCULAR HGB CONC 32.5 g/dl (32.0-36.5); MEAN CORPUSCULAR VOLUME 91.3 fl (80.0-96.0); PLATELET COUNT, AUTOMATED 328 10^3/uL (150-450); RED BLOOD COUNT 4.38 10^6/uL (4.00-5.40); WHITE BLOOD COUNT 8.1 10^3/uL (4.0-10.0)
[2022-11-30] MEDS ORDERED: propofoL 200 MG/20 ML VIAL As Ordered ONE (08:08)
[2022-11-30] MEDS ORDERED: ONDANSETRON 4MG 2ML VIAL As Ordered ONE (08:08)
[2022-11-30] MEDS ORDERED: KETOROLAC 60MG 2ML VIAL As Ordered ONE (08:08)
[2022-11-30] MEDS ORDERED: ROCURONIUM BROMIDE 50MG/5ML VIAL As Ordered ONE (08:08)
[2022-11-30] MEDS ORDERED: LIDOCAINE 2% 100MG/5ML SDV (FOR ANES.) As Ordered ONE (08:08)
[2022-11-30] MEDS ORDERED: fentaNYL 100 MCG/2 ML INJECTION As Ordered ONE (08:08)
[2022-11-30] MEDS ORDERED: MIDAZOLAM INJ 2MG/2ML VIAL As Ordered ONE (08:08)
[2022-11-30] MEDS ORDERED: ACETAMINOPHEN 1000MG 100ML IV BAG As Ordered ONE (08:08)
[2022-11-30] MEDS ORDERED: SUGAMMADEX SODIUM 500 MG/5 ML VIAL (BRIDION) As Ordered ONE (08:09)
[2022-11-30] MEDS ORDERED: NORCO, ANEXSIA 5/325MG TABLET (HYDROcodone/ACETAMINOPHEN) PO PRN (10:10)
[2022-11-30] MEDS ORDERED: PERCOCET 5MG/325MG TAB PO PRN (10:10)
[2022-11-30] MEDS ORDERED: fentaNYL 100 MCG/2 ML INJECTION IV PRN (10:15)
[2022-11-30] MEDS ORDERED: HYDROMORPHONE HCL 0.5 MG/ 0.5 ML SYRINGE IV PRN (10:15)
[2022-11-30] MEDS ORDERED: ONDANSETRON 4MG 2ML VIAL IV PRN (10:15)
[2022-11-30] MEDS ORDERED: oxyCODONE 5MG TAB PO PRN (10:15)
[2022-11-30 11:28] VITALS: BP 134/79; TEMP 97.9; O2SAT 99
[2022-11-30] MEDS ORDERED: PERC5TAB12 PO (11:33)
== END 2022-11-30 11:34 | disposition home or self-care (01) ==
LOC: M SDC 07:08
PROVIDERS: ATTEND Obstetrics & Gynecology
DX: Z30.2 Encounter for sterilization (principal)
CPT/HCPCS: 36415; 58661; 81025; 85027; 86850; 86900; 86901; 88302; J0131; J0665; J1100; J1885; J2250; J2405; J3010

== ENCOUNTER → 2023-03-09 | Outpatient (CLI) | payer OTHER ==
[~2023-03-09] MED LIST changes: +PERC5TAB12 PO
== END ==
LOC: M WHC 06:58
PROVIDERS: ATTEND Internal Medicine Gastroenterology
DX: R11.2 Nausea with vomiting, unspecified (principal)